=== PATIENT | female | born 1950 | race Caucasian/White ===

== ENCOUNTER 2016-11-01 16:11 | Inpatient (IN) | payer OTHER ==
[~2016-11-01] VITALS: Ht 162.6 cm; Wt 70.5 kg
--- NOTE | ~2016-11-01 | HC ---
[facility] [address] [place] [address] CONSULTATION Name: GILLIAN WILSON Room #: 205-P ADM IN M.R.#: [id number] Admission: 11/01/16 Attend Phys: Gen Jenkins DO Discharge: Date of : 52 Report #: [id number] THIS REPORT FOR: //name// CC: FAM unknown Gen Jenkins REASON FOR CONSULTATION: Hypertension. HISTORY OF PRESENT ILLNESS: The patient is a 66-year-old woman with advanced kidney disease and hypertension. She is followed by Dr. Roth, her production support engineer at [facility]. Apparently, she fell and ended up at [facility]. From there, she migrated to [facility]. Her baseline level of functioning is being wheelchair bound. She has had a prior below the knee amputation for severe peripheral disease. She is now admitted for 2-3-day history of high and difficult to control blood pressures. She denies chest pain, pressure or ischemic type symptoms. She denies orthopnea or paroxysmal nocturnal dyspnea. She has had recurrent diarrhea and has been previously and recently diagnosed with C. difficile colitis. LISTED ALLERGIES: Include AMLODIPINE, ASPIRIN, LISINOPRIL, MEPERIDINE, MORPHINE, NSAIDS, PENICILLIN, SULFA, and VANCOMYCIN. MEDICATIONS: She has multiple medicine lists that are not all the same. Her [facility] medicine list includes amiodarone 200 mg daily, atorvastatin 40 mg daily, citalopram 20 mg daily, Plavix 75 mg daily, Cardura 4 mg twice daily, metoprolol 100 mg twice daily, Epogen, minoxidil 2.5 mg twice daily, Lyrica 50 mg twice daily, furosemide 40 mg daily, spironolactone 25 mg daily, clonidine patch 0.1 patch weekly, Imdur 120 mg daily, hydralazine 100 mg q. 8 hours and hydrocodone. PAST MEDICAL HISTORY: Medical records have been reviewed and include a history of right BKA in 2013, left lower extremity stenting, right arm fistula, stage 4 chronic kidney disease, coronary stenting, bronchitis, hypertension, partial hysterectomy, tubal ligation. SOCIAL HISTORY: She has never been a smoker. FAMILY HISTORY: Father with hypertension. REVIEW OF SYSTEMS: All systems negative except as that noted above. PHYSICAL EXAMINATION: GENERAL: A pleasant woman in no distress. She is alert and oriented. VITAL SIGNS: Blood pressure is 120/59, heart rate of 82 and regular. She is afebrile. Temperature is 98.6 degrees, 5 feet 4 inches tall and 160 pounds. HEENT: There are neither xanthelasma, subcutaneous xanthomata, oral mucosal or digital cyanosis or kyphoscoliosis present. [address] [address] CONSULTATION Name: GILLIAN WILSON Room #: 205-P ADM IN M.R.#: [id number] Admission: 11/01/16 Attend Phys: Gen Jenkins DO Discharge: Date of : 52 Report #: [id number] CHEST: Clear to auscultation and percussion. CARDIAC: Regular rate and rhythm with normal S1, S2. Jugular venous pressure is elevated. ABDOMEN: Soft and nontender. EXTREMITIES: Remaining extremity reveals 2+ pedal edema. Radial pulses are 2+. NEUROLOGIC: She is alert with a nonfocal exam. Echocardiogram demonstrates hyperdynamic systolic function with LVH. EKG demonstrates sinus rhythm with LVH. Sodium 145, potassium 4.4, creatinine 2.3. Troponin negative. ProBNP of 1805. White count 8.5, hemoglobin 13, hematocrit 42, platelet count 301. Chest x-ray demonstrates venous congestion. IMPRESSION: 1. Hypertension, poor control. 2. Diastolic heart failure, acute on chronic. 3. Stage 4 chronic kidney disease. 4. Peripheral vascular disease with right below knee amputation, left lower extremity stenting. 5. History of coronary artery disease with prior stenting, no angina. 6. Clostridium difficile colitis. RECOMMENDATIONS: 1. I believe to a large degree her difficult to control hypertension is related to volume overload and advanced kidney disease. I would recommend intravenous diuretic therapy. Her ejection fraction is normal with moderate LVH. 2. I would defer optimal volume management to her production support engineer. It looks like in some point in the past, there has been a talk or concern about hemodialysis. At this point, no additional cardiovascular testing is needed. Thank you for asking me to participate in her care. By: 06 56 Dakota Lucas MD, FACC /nt
--- NOTE | ~2016-11-01 | EKG ---
[place] [address] [employer] [facility] [place] [address] ELECTROCARDIOGRAM REPORT Name: GILLIAN WILSON Room #: 205- ADM IN M.R.#: [id number] Admission: 11/01/16 Attend Phys: Gen Jenkins DO Discharge: Date of : 52 Report #: [id number] THIS REPORT FOR: //name// [facility] Test Date: 2016-11-02 Test Time: 06:04:53 Pat Name: GILLIAN GALDAMEZ Department: Room: 205 P Gender: F Weir Fisherman: PAYAL : 1950 Requested By: Gen Jenkins Order Number: [id number] MD: Dakota Lucas Measurements Intervals [place] Rate: 78 P: 44 [place]: 176 QRS: -7 QRSD: 107 T: QT: 395 QTc: 450 Interpretive Statements Sinus rhythm Atrial premature complex Probable left atrial enlargement LVH with secondary repolarization abnormality Anteroseptal infarct, age indeterminate No previous ECG available for comparison Electronically Signed On 11-03-2016 8:39:39 CDT by Dakota Lucas [email or web address] <ELECTRONICALLY SIGNED> By: Dakota Lucas MD, [facility] 11/03/16 0839 3 3 Dakota Lucas MD, [facility] /EPI
--- NOTE | ~2016-11-01 | 2DMMODE ---
[facility] [address] [email or web address] [address] 2 D/M-MODE ECHOCARDIOGRAM Name: GILLIAN WILSON Room #: 205-P [facility] IN ..#: [id number] Admission: 11/01/16 Attend Phys: Gen Jenkins, Discharge: Date of : 52 Date of Service: 11/02/16 [facility] Report #: [id number] THIS REPORT FOR: //name// APPROVED REPORT Study performed: 11/02/2016 09:02:59 EXAM: Comprehensive 2D, Doppler, and color-flow Echocardiogram Patient Location: Bedside Room #: 205 Status: routine Other Information Study Quality: Good Indications COPD Hypertension/HDD 2D Dimensions RVDd: 37.54 mm LVEF(%): 65.99 (>50%) IVSd: 16.38 (7-11mm) LVOT Diam: 19.23 (18-24mm) LVDd: 39.52 mm PWd: 15.95 (7-11mm) Ascending Ao: 30.50 (22-36mm) LVDs: 25.37 (25-40mm) Aortic Root: 27.83 mm IVC: 12.00 mm Gaviria's LVEF: 65.99 % Volumes Left Atrial Volume (Systole) Single Plane 4CH: 68.22 mL Single Plane 2CH: 64.18 mL LA ESV Index: 41.00 mL/m2 Aortic Valve AoV Peak Bernard.: 1.72 m/s AO Peak Gr.: 11.81 mmHg LVOT Max P.85 mmHg LVOT Max V: 1.40 m/s TWAN Vmax: 2.37 cm2 Mitral Valve E/A Ratio: 0.9 MV Decel. Time: 228.94 ms MV E Max Bernard.: 1.06 m/s MV A Bernard.: 1.20 m/s MV PHT: 66.39 ms [facility] [place] [address] 2 D/M-MODE ECHOCARDIOGRAM Name: GILLIAN WILSON Room #: 205-P [facility] IN ..#: [id number] Admission: 11/01/16 Attend Phys: Gen Jenkins, Discharge: Date of : 52 Date of Service: 11/02/16 [facility] Report #: [id number] IVRT: 147.64 ms Pulmonary Valve PV Peak Bernard.: 1.56 m/s PV Peak Gr.: 9.79 mmHg Pulmonary Vein P Vein S: 0.50 m/s P Vein A: 0.26 m/s P Vein D: 0.37 m/s P Vein A Dur.: 101.5 msec P Vein S/D Ratio: 1.35 Tricuspid Valve TR Peak Bernard.: 3.03 m/s RAP Estimate: 5.00 mmHg TR Peak Gr.: 36.62 mmHg PA Pressure: 42.00 mmHg Left Ventricle The left ventricle is normal size. There is normal LV segmental wall motion. Moderate concentric left ventricular hypertrophy. Left ventricular systolic function is hyperdynamic. LVEF is >70%. Grade I - abnormal relaxation pattern. Right Ventricle The right ventricle is normal size. The right ventricular systolic function is normal. Atria Left atrium is dilated. Right atrium is at the upper limits of normal. Aortic Valve The aortic valve is normal in structure. No aortic regurgitation is present. There is no aortic valvular stenosis. Mitral Valve The mitral valve is normal in structure. No mitral regurgitation. No evidence of mitral valve stenosis. Tricuspid Valve The tricuspid valve is normal in structure. There is trace tricuspid regurgitation. The right atrial pressure is estimated at 5 mmHg. There is mild-moderate pulmonary hypertension. Pulmonic Valve The pulmonary valve is normal in structure. There is [place]mon[place] [address] 2 D/M-MODE ECHOCARDIOGRAM Name: GILLIAN WILSON Room #: 205-P [facility] IN [facility]#: [id number] Admission: 11/01/16 Attend Phys: Gen Jenkins, Discharge: Date of : 52 Date of Service: 11/02/16 1024 Report #: [id number] Great Vessels The aortic root is normal in size. IVC is normal in size and collapses >50% with inspiration. Pericardium No pericardial effusion. <Conclusion> Left ventricular systolic function is hyperdynamic. Moderate concentric left ventricular hypertrophy. There is normal LV segmental wall motion. LVEF is >70%. Grade I - abnormal relaxation pattern. The aortic valve is normal in structure. No aortic regurgitation or stenosis The mitral valve is normal in structure. No mitral regurgitation. Pulmonary artery pressure of 40mmHg No pericardial effusion. <ELECTRONICALLY SIGNED> By: Dakota Lucas MD, FACC 11/02/16 1024 1024 1024 Dakota Lucas MD, FACC /INF
--- NOTE | ~2016-11-01 | EKG ---
[place] [address] [address] [place] [address] ELECTROCARDIOGRAM REPORT Name: GILLIAN WILSON Room #: 205- ADM IN M.R.#: [id number] Admission: 11/01/16 Attend Phys: Gen Jenkins DO Discharge: Date of : 51 Report #: [id number] THIS REPORT FOR: //name// [facility] ED Test Date: 2016-11-01 Test Time: 16:59:51 Pat Name: GILLIAN GALDAMEZ Department: Room: 205 Gender: F Tufter Hand: [email or web address] : 1950 Requested By: Mainor Ramirez Order Number: [id number] MD: Dakota Lucas Measurements Intervals [place] Rate: 69 P: 64 [place]: 177 QRS: -10 QRSD: 109 T: 172 QT: 405 QTc: 434 Interpretive Statements Sinus rhythm Probable left atrial enlargement LVH with secondary repolarization abnormality Anterior infarct, old No previous ECG available for comparison Electronically Signed On 11-03-2016 8:35:26 CDT by Dakota Lucas [email or web address] <ELECTRONICALLY SIGNED> By: Dakota Lucas MD, [facility] 11/03/16 0835 1659 1659 Dakota Lucas MD, [facility] /EPI
--- NOTE | ~2016-11-01 | EKG ---
[place] [address] [facility] [place] [address] ELECTROCARDIOGRAM REPORT Name: GILLIAN WILSON Room #: 205- ADM IN M.R.#: [id number] Admission: 11/01/16 Attend Phys: Gen Jenkins DO Discharge: Date of : 51 Report #: [id number] THIS REPORT FOR: //name// [facility] Test Date: 2016-11-01 Test Time: 22:31:19 Pat Name: GILLIAN GALDAMEZ Department: Room: 205 P Gender: F Roofing Contractor: osiel : 1950 Requested By: Yane Bautista Order Number: [id number] MD: Dakota Lucas Measurements Intervals [place] Rate: 72 P: 43 [place]: 173 QRS: -9 QRSD: 110 T: 188 QT: 397 QTc: 435 Interpretive Statements Sinus rhythm LVH with secondary repolarization abnormality Probable anterior infarct, age indeterminate No previous ECG available for comparison Electronically Signed On 11-03-2016 8:38:00 CDT by Dakota Lucas [email or web address] <ELECTRONICALLY SIGNED> By: Dakota Lucas MD, [facility] 11/03/16 0838 30 30 Dakota Lucas MD, [facility] /EPI
--- NOTE | ~2016-11-01 | EKG ---
[place] [address] [facility] [place] [address] ELECTROCARDIOGRAM REPORT Name: GILLIAN WISLON Room #: 205- ADM IN M.R.#: [id number] Admission: 11/01/16 Attend Phys: Gen Jenkins DO Discharge: Date of : 52 Report #: [id number] THIS REPORT FOR: //name// [facility] Test Date: 2016-11-02 Test Time: 01:45:29 Pat Name: GILLIAN GALDAMEZ Department: Room: 205 P Gender: F Ed Educational Aide: osiel : 1950 Requested By: Gen Jenkins Order Number: [id number] MD: Dakota Lucas Measurements Intervals [place] Rate: 72 P: 49 [place]: 172 QRS: -11 QRSD: 108 T: 155 QT: 411 QTc: 450 Interpretive Statements Sinus rhythm LVH with secondary repolarization abnormality Probable anterior infarct, age indeterminate Baseline wander in lead(s) V1 No previous ECG available for comparison Electronically Signed On 11-03-2016 8:38:54 CDT by Dakota Lucas [email or web address] <ELECTRONICALLY SIGNED> By: Dakota Lucas MD, [facility] 11/03/16 0838 0145 0145 Dakota Lucas MD, [facility] /EPI
[2016-11-01 16:12] VITALS: BP 205/85
[2016-11-01 18:08] LABS: BASOPHILS 0.7 % (0.0-2.0); EOSINOPHILS 2.7 % (0.0-3.0); HEMATOCRIT 42.2 % (37.0-47.0); HEMOGLOBIN 13.6 gm/dL (12.0-15.0); LYMPHOCYTES 18.8 % (24.0-44.0); MCH 27.7 pg (26.0-34.0); MCHC 32.1 g/dL (28.0-37.0); MCV 86.3 fL (80.0-100.0); MONOCYTES 7.9 % (1.0-8.0); PLATELET COUNT 301 thou/uL (150-400); POLYS 69.9 % (36.0-66.0); RBC 4.89 mil/uL (4.20-5.00); RDW 19.9 % (10.5-14.5); WBC 8.5 thou/uL (4.0-11.0)
[2016-11-01 18:19] LABS: ANION GAP 7 mmol/L (7-16); BUN 21 mg/dL (7-18); CALCIUM 7.7 mg/dL (8.5-10.1); CHLORIDE 110 mmol/L (98-107); CO2 28 mmol/L (21-32); CREATININE 2.3 mg/dL (0.6-1.0); GLUCOSE 96 mg/dL (74-106); POTASSIUM 4.4 mmol/L (3.5-5.1); SODIUM 145 mmol/L (136-145)
[2016-11-01 18:22] LABS: MANUAL DIFF NO
[2016-11-01 18:29] LABS: NT-PRO BRAIN NAT PEPTIDE 1805 pg/mL (<300); TROPONIN-I < 0.04 ng/mL (<0.04-0.07)
[2016-11-01 21:47] VITALS: BP 176/93
[2016-11-01 22:39] VITALS: BP 206/88
[2016-11-01] MEDS ORDERED: ACCUNEB SO1.25 MG/1 INH (23:40)
[2016-11-01] MEDS ORDERED: ATORVASTATIN CA40 MG PO (23:41)
[2016-11-01] MEDS ORDERED: PACERONE200 MG PO (23:41)
[2016-11-01] MEDS ORDERED: TUMS PO (23:41)
[2016-11-01] MEDS ORDERED: CELEXA20 MG PO (23:41)
[2016-11-01] MEDS ORDERED: PLAVIX 75 MG TA75 M1 PO (23:42)
[2016-11-01] MEDS ORDERED: CARDURA4 MG PO (23:42)
[2016-11-01] MEDS ORDERED: TOPROL XL100 MG PO (23:43)
[2016-11-01] MEDS ORDERED: PROCRIT 1010000 U/M1 IJ (23:44)
[2016-11-01] MEDS ORDERED: CLARITIN10 MG PO (23:45)
[2016-11-01] MEDS ORDERED: FOLIC ACID1 MG PO (23:45)
[2016-11-01] MEDS ORDERED: FLONASE 0.05%50 MCG NASAL (23:45)
[2016-11-01] MEDS ORDERED: LYRICA 50 MG50 MG PO (23:47)
[2016-11-01] MEDS ORDERED: MEGESTROL40 MG/1 M1 PO (23:47)
[2016-11-01] MEDS ORDERED: MINOXIDIL2.5 MG PO (23:47)
[2016-11-01] MEDS ORDERED: ANTACID650 MG PO (23:49)
[2016-11-01] MEDS ORDERED: PHENERGAN 25 MG25 M1 PO (23:49)
[2016-11-01] MEDS ORDERED: SPIRIVA INH (23:50)
[2016-11-01] MEDS ORDERED: ZOFRAN ODT4 MG DISSOLVE (23:50)
[2016-11-01] MEDS ORDERED: ALDACTONE25 MG PO (23:50)
[2016-11-01] MEDS ORDERED: LASIX 40 MG TAB40 M2 PO (23:50)
[2016-11-01] MEDS ORDERED: CATAPRES-TTS 10.1 MG TD (23:52)
[2016-11-01] MEDS ORDERED: IMDUR 60 MG TAB60 M1 PO (23:53)
[2016-11-01] MEDS ORDERED: CALCITRIOL0.5 MCG PO (23:53)
[2016-11-01] MEDS ORDERED: NORCO 5-325 TA1 EACH PO (23:55)
[2016-11-01] MEDS ORDERED: HYDRALAZINE HC100 MG PO (23:55)
[2016-11-02 05:26] VITALS: BP 150/69
[2016-11-02 07:20] VITALS: BP 143/72
[2016-11-02 11:30] VITALS: BP 155/71
[2016-11-02] MEDS ORDERED: SIMVASTATIN40 MG PO (13:58)
[2016-11-02] MEDS ORDERED: SPIRIVA INH (13:59)
[2016-11-02] MEDS ORDERED: BUMETANIDE PO (14:02)
[2016-11-02] MEDS ORDERED: NASONEX17 GM NASAL (14:03)
[2016-11-02] MEDS ORDERED: CLARITIN10 MG PO (14:03)
[2016-11-02] MEDS ORDERED: ALBUTEROL2.5 MG/31 INH (14:05)
[2016-11-02 15:34] VITALS: BP 120/59
[2016-11-02 20:30] VITALS: BP 139/61
[2016-11-03 03:57] VITALS: BP 148/62
[2016-11-03 05:46] LABS: ABSOLUTE NEUTROPHILS 4.4 thou/uL (1.4-8.2); BASOPHILS 0.3 % (0.0-2.0); EOSINOPHILS 2.8 % (0.0-3.0); HEMATOCRIT 37.6 % (37.0-47.0); HEMOGLOBIN 12.2 gm/dL (12.0-15.0); MCH 27.8 pg (26.0-34.0); MCHC 32.4 g/dL (28.0-37.0); MCV 85.9 fL (80.0-100.0); MONOCYTES 9.7 % (1.0-8.0); PLATELET COUNT 284 thou/uL (150-400); POLYS 59.2 % (36.0-66.0); RBC 4.38 mil/uL (4.20-5.00); RDW 19.6 % (10.5-14.5); WBC 7.5 thou/uL (4.0-11.0)
[2016-11-03 05:48] LABS: MANUAL DIFF NO
[2016-11-03 05:56] LABS: CALCIUM 7.6 mg/dL (8.5-10.1); CREATININE 2.7 mg/dL (0.6-1.0); POTASSIUM 4.6 mmol/L (3.5-5.1)
[2016-11-03 07:45] VITALS: BP 148/67
[2016-11-03 11:23] VITALS: BP 132/59
[2016-11-03 16:18] VITALS: BP 126/61
[2016-11-03 19:58] VITALS: BP 125/64
[2016-11-04 03:01] LABS: ABSOLUTE NEUTROPHILS 5.2 thou/uL (1.4-8.2); BASOPHILS 0.8 % (0.0-2.0); EOSINOPHILS 2.5 % (0.0-3.0); HEMATOCRIT 38.8 % (37.0-47.0); HEMOGLOBIN 12.3 gm/dL (12.0-15.0); LYMPHOCYTES 25.8 % (24.0-44.0); MCH 27.1 pg (26.0-34.0); MCHC 31.8 g/dL (28.0-37.0); MCV 85.4 fL (80.0-100.0); MONOCYTES 8.7 % (1.0-8.0); PLATELET COUNT 301 thou/uL (150-400); POLYS 62.2 % (36.0-66.0); RBC 4.54 mil/uL (4.20-5.00); RDW 19.1 % (10.5-14.5); WBC 8.3 thou/uL (4.0-11.0)
[2016-11-04 03:13] LABS: MANUAL DIFF NO
[2016-11-04 03:19] LABS: CALCIUM 7.7 mg/dL (8.5-10.1); POTASSIUM 4.2 mmol/L (3.5-5.1)
[2016-11-04 03:42] VITALS: BP 134/72
[2016-11-04 07:16] VITALS: BP 166/80
[2016-11-04 11:42] VITALS: BP 165/69
[2016-11-04 15:37] VITALS: BP 129/63
[2016-11-04 20:02] VITALS: BP 140/65
[2016-11-05 04:21] VITALS: BP 140/70
[2016-11-05 08:20] VITALS: BP 113/64
[2016-11-05] MEDS ORDERED: XIFAXAN550 MG PO (09:36)
[2016-11-05] MEDS ORDERED: NORCO 5-325 TA1 EACH PO (09:37)
[2016-11-05] MEDS ORDERED: LYRICA 50 MG50 MG PO (09:37)
== END 2016-11-05 12:20 | DRG 304 ==
LOC: ER 16:11 → 2N 21:20 → EROBS 21:20 → 2N 21:45
PROVIDERS: Family Medicine; Nurse Practitioner
DX: I16.0 Hypertensive urgency (principal); I50.33 Acute on chronic diastolic (congestive) heart failure; N18.4 Chronic kidney disease, stage 4 (severe); A04.7 Enterocolitis due to Clostridium difficile; I13.0 Hypertensive heart and chronic kidney disease with heart failure and stage 1 through stage 4 chronic kidney disease, or unspecified chronic kidney disease; I73.9 Peripheral vascular disease, unspecified; J44.9 Chronic obstructive pulmonary disease, unspecified; M62.81 Muscle weakness (generalized); I48.0 Paroxysmal atrial fibrillation; F41.9 Anxiety disorder, unspecified; I25.10 Atherosclerotic heart disease of native coronary artery without angina pectoris; Z95.5 Presence of coronary angioplasty implant and graft; I25.2 Old myocardial infarction; Z89.611 Acquired absence of right leg above knee; Z86.73 Personal history of transient ischemic attack (TIA), and cerebral infarction without residual deficits; Z90.710 Acquired absence of both cervix and uterus; Z79.02 Long term (current) use of antithrombotics/antiplatelets; Z79.51 Long term (current) use of inhaled steroids; Z79.899 Other long term (current) drug therapy; Z88.0 Allergy status to penicillin; Z88.4 Allergy status to anesthetic agent; Z88.1 Allergy status to other antibiotic agents; Z88.5 Allergy status to narcotic agent; Z88.2 Allergy status to sulfonamides; Z88.8 Allergy status to other drugs, medicaments and biological substances; Z82.49 Family history of ischemic heart disease and other diseases of the circulatory system
CPT/HCPCS: 10081

== ENCOUNTER 2016-11-30 14:05 | Inpatient (IN) | payer OTHER ==
[~2016-11-30] VITALS: Ht 160 cm; Wt 64.9 kg
--- NOTE | ~2016-11-30 | P ---
[facility] [place] [address] [address] [place] [address] PROCEDURE REPORT Name: GILLIAN WILSON Room #: 428-P ADM IN M.R.#: [id number] Admission: 12/02/16 Attend Phys: Jhon Lopez MD Discharge: Date of : 52 Report #: [id number] THIS REPORT FOR: //name// CC: [facility] physician/PCP Jhon Lopez MD DATE OF SERVICE: 12/02/2016 PROCEDURE: EGD with biopsies. PATIENT OF: Dr. Jhon Lopez. INDICATION FOR PROCEDURE: This patient has had dysphagia and odynophagia of undetermined etiology. She feels as the food is stuck in her esophagus today. She says this has been going on acutely for the past 2 weeks. She denies any gastroesophageal reflux. She has a history of a hiatal hernia, but no peptic ulcer disease. Her weight is stable. Her appetite has been good. She is having chest pain that radiates straight through to her back. Informed consent for this procedure was obtained prior to the administration of any medication. The risks of the procedure, which include bleeding, perforation, infection, complications of sedation and the possibility I could miss something have been explained to the patient and she has indicated her consent by signing. Propofol was slowly titrated before and during this procedure for patient comfort by the anesthesia service. The [employer] upper videoscope was introduced through the upper esophageal sphincter and advanced under direct visualization to the second portion of the duodenum. Findings are noted on withdrawal of the scope. The duodenal mucosa appears somewhat irregular and . Biopsies obtained times 1 from the second portion of the duodenum for histopathology to evaluate this histologically. Good hemostasis was noted after that biopsy, but the patient has been receiving heparin. The duodenal bulb appears normal. Pylorus, erythematous and edematous mucosa noted. The prepyloric area is also erythematous and edematous, but nonbleeding and no ulcers were seen here. Antrum, erythematous mucosa. Biopsies were obtained times 2 from the antrum for histopathology. Good hemostasis was noted after those biopsies. Body, erythematous mucosa. Cardia and fundus, erythematous mucosa. Retroflex view reveals presence of a small hiatal hernia. The scope was withdrawn to the esophagus. The Z-line is appropriately located at the top of the gastric folds and appears normal. The distal esophageal mucosa appears normal in the mid esophagus. There are several ulcerations that are noted. These have exudate on top that is removable with suction through the scope and there is a red ulceration under these white exudative lesions. The more proximal esophageal mucosa appears normal. The scope was withdrawn. The patient went to the [address] [address] PROCEDURE REPORT Name: GILLIAN WILSON Room #: 428-P ADM IN M.R.#: [id number] Admission: 12/02/16 Attend Phys: Jhon Lopez MD Discharge: Date of : 52 Report #: [id number] recovery area in stable condition. She tolerated the procedure well. IMPRESSION: 1. Ulcerated esophagus in the 30 cm area from the incisors. 2. Small hiatal hernia. 3. Diffuse gastric erythema and edema, worse distally. 4. Irregular mucosa of the duodenum. Biopsies pending. RECOMMENDATIONS: To await the biopsy results. She will need a repeat EGD in approximately 12 weeks to assure ulcer healing of these esophageal ulcers. Thank you very much once again for allowing me to participate in her care. <ELECTRONICALLY SIGNED> By: Ara Chowdhury DO 12/03/16 0541 1543 2246 Ara Chowdhury DO /nt
--- NOTE | ~2016-11-30 | S ---
[facility] [place] [address] [address] [place] [address] SURGICAL PATH RPT PROCEDURE Name: GILLIAN WILSON Room #: 428-P DIS IN M.R.#: [id number] Admission: 12/02/16 Date of : 52 Discharge: 12/03/16 Report #: [id number] Path Case #: [id number] PATHOLOGY REPORT COLLECTION DATE: 12/02/2016 RECEIVED DATE: 12/03/2016 SUBMITTING PHYS: Dr. Ara Chowdhury OTHER PHYS: Dr. Jhon Lopez SPECIMEN(S) RECEIVED: A.Bx at 2nd portion of duodenum B.Bx at gastric * * * * * * * * * * * * FINAL DIAGNOSIS: A. "BX second portion of duodenum", biopsy: - Small bowel mucosa with acute and chronic inflammation consistent with peptic duodenitis and increased intraepithelial lymphocytes with focal villous atrophy (see comment). B. "BX at gastric", biopsy: - Gastric mucosa with mild reactive changes and mild acute and chronic inflammation consistent with mild diffuse active gastritis. - Negative H. pylori immunohistochemical stain (block B1); control reacted appropriately. COMMENT: Deeper sections are performed on specimen A. The findings are consistent with peptic duodenitis. The increased intraepithelial lymphocytes and focal villous atrophy are worrisome for concomitant and/or evolving celiac sprue. No dysplasia is seen. Clinical and endoscopic correlation is required. Part B is co-reviewed with Dr. Zuleyma Butts. (CLW:herminia; 12/04/2016) PATHOLOGIST: Princess Linder M.D. REPORT ELECTRONICALLY SIGNED BY: Princess Linder M.D. DATE/TIME: 12/04/2016 15:21 * * * * * * * * * * * * GROSS PATHOLOGY: A. Received in formalin labeled "ANDREA Shell 2nd portion of duodenum," is a segment of almanzar soft tissue measuring 0.4 cm in maximum dimension. The specimen is submitted entirely in cassette A1. B. Received in formalin labeled "ANDREA Shell of gastric," are two segments of almanzar soft tissue measuring 0.6 x 0.3 x 0.2 cm in aggregate dimensions and ranging from 0.1 to 0.5 cm in maximum [address] [place] [address] SURGICAL PATH RPT PROCEDURE Name: GILLIAN WILSON Room #: 428-P [facility] IN M.R.#: [id number] Admission: 12/02/16 Date of : 52 Discharge: 12/03/16 Report #: [id number] Path Case #: [id number] dimension. The specimen is submitted entirely in cassette B1. (TSD; 12/03/2016) CLINICAL HISTORY: Hiatal hernia, esophageal ulcers, diffuse gastroduodenitis INITIAL CPT CODE(S): A; 19845 B; 73959, 47970 Professional services performed by [facility] at [facility] [address] [place] [address] Technical services performed by [facility] at [address] [place] [address], [address], [place] [address]. [facility] [address] [place] [address] PHONE: [phone] DIRECTOR: Christo Burrell M.D. * * * END OF REPORT * * *
--- NOTE | ~2016-11-30 | EKG ---
[address] [place] [address] ELECTROCARDIOGRAM REPORT Name: GILLIAN WILSON Room #: 428-P [facility] M.R.#: [id number] Admission: 11/30/16 Attend Phys: Jhon Lopez MD Discharge: Date of : 52 Report #: [id number] THIS REPORT FOR: //name// [facility] ED Test Date: 2016-11-30 Test Time: 14:08:54 Pat Name: GILLIAN GALDAMEZ Department: Room: [facility] Gender: F Goodyear Welter: [email or web address] : 1950 Requested By: Charbel Rivera Order Number: [id number] MD: Dakota Lucas Measurements Intervals [place] Rate: 85 P: 47 [place]: 171 QRS: -24 QRSD: 100 T: 80 QT: 373 QTc: 444 Interpretive Statements Sinus rhythm Probable left atrial enlargement LVH with secondary repolarization abnormality Anterior infarct, old Compared to ECG 11/02/2016 06:04:53 Atrial premature complex(es) no longer present Electronically Signed On 12-01-2016 13:07:50 CDT by Dakota Lucas [email or web address] <ELECTRONICALLY SIGNED> By: Dakota Lucas MD, [facility] 12/01/16 1307 1408 1408 Dakota Lucas MD, [facility] /EPI
[~2016-11-30 14:05] MED LIST: ACCUNEB SO1.25 MG/1 INH; ALBUTEROL2.5 MG/31 INH; ALDACTONE25 MG PO; ANTACID650 MG PO; ATORVASTATIN CA40 MG PO; BUMETANIDE PO; CALCITRIOL0.5 MCG PO; CARDURA4 MG PO; CATAPRES-TTS 10.1 MG TD; CELEXA20 MG PO; CLARITIN10 MG PO; FLONASE 0.05%50 MCG NASAL; FOLIC ACID1 MG PO; HYDRALAZINE HC100 MG PO; IMDUR 60 MG TAB60 M1 PO; LASIX 40 MG TAB40 M2 PO; LYRICA 50 MG50 MG PO; MEGESTROL40 MG/1 M1 PO; MINOXIDIL2.5 MG PO; NASONEX17 GM NASAL; NORCO 5-325 TA1 EACH PO; PACERONE200 MG PO; PHENERGAN 25 MG25 M1 PO; PLAVIX 75 MG TA75 M1 PO; PROCRIT 1010000 U/M1 IJ; SIMVASTATIN40 MG PO; SPIRIVA INH; TOPROL XL100 MG PO; TUMS PO; XIFAXAN550 MG PO; ZOFRAN ODT4 MG DISSOLVE
[2016-11-30 14:06] VITALS: BP 104/47
[2016-11-30 14:39] LABS: ABSOLUTE NEUTROPHILS 5.7 thou/uL (1.4-8.2); HEMOGLOBIN 11.7 gm/dL (12.0-15.0); LYMPHOCYTES 20.4 % (24.0-44.0); MCH 27.3 pg (26.0-34.0); MCHC 32.4 g/dL (28.0-37.0); MCV 84.1 fL (80.0-100.0); PLATELET COUNT 272 thou/uL (150-400); POLYS 66.6 % (36.0-66.0); RBC 4.28 mil/uL (4.20-5.00); RDW 17.4 % (10.5-14.5); WBC 8.5 thou/uL (4.0-11.0)
[2016-11-30 14:43] LABS: MANUAL DIFF NO
[2016-11-30 14:47] LABS: ANION GAP 11 mmol/L (7-16); BUN 40 mg/dL (7-18); CALCIUM 8.6 mg/dL (8.5-10.1); CHLORIDE 107 mmol/L (98-107); CO2 24 mmol/L (21-32); CREATININE 2.7 mg/dL (0.6-1.0); GLUCOSE 108 mg/dL (74-106); POTASSIUM 4.3 mmol/L (3.5-5.1); SODIUM 142 mmol/L (136-145)
[2016-11-30 14:55] LABS: TROPONIN-I < 0.04 ng/mL (<0.04-0.07)
[2016-11-30] MEDS ORDERED: ONDANSETRON ODT4 MG PO (15:16)
[2016-11-30] MEDS ORDERED: CHOLESTYRAMINE P4 GM PO (15:18)
[2016-11-30] MEDS ORDERED: COLACE100 MG PO (15:19)
[2016-11-30] MEDS ORDERED: BISACODYL SUPP10 MG RECTAL (15:19)
[2016-11-30] MEDS ORDERED: FLOMAX0.4 MG PO (15:20)
[2016-11-30] MEDS ORDERED: OMEPRAZOLE20 M1 PO (15:20)
[2016-11-30] MEDS ORDERED: NEPRO CARB STE237 ML PO (15:22)
[2016-11-30 17:36] VITALS: BP 115/51
[2016-11-30 18:08] VITALS: BP 113/56
[2016-11-30 20:22] VITALS: BP 131/61
[2016-12-01 04:13] VITALS: BP 121/59
[2016-12-01 04:47] LABS: HEMATOCRIT 35.7 % (37.0-47.0); HEMOGLOBIN 11.4 gm/dL (12.0-15.0); MCHC 32.1 g/dL (28.0-37.0); MCV 84.2 fL (80.0-100.0); RBC 4.24 mil/uL (4.20-5.00); RDW 17.7 % (10.5-14.5); WBC 7.8 thou/uL (4.0-11.0)
[2016-12-01 05:10] LABS: CALCIUM 8.4 mg/dL (8.5-10.1); CREATININE 2.7 mg/dL (0.6-1.0); POTASSIUM 4.2 mmol/L (3.5-5.1)
[2016-12-01 16:00] VITALS: BP 109/62
[2016-12-01 20:30] VITALS: BP 133/66
[2016-12-02 04:30] VITALS: BP 128/64
[2016-12-02 07:34] VITALS: BP 143/66
[2016-12-02 16:28] VITALS: BP 147/71
[2016-12-02 17:59] VITALS: BP 176/84
[2016-12-02 20:10] VITALS: BP 149/67
[2016-12-03 01:40] VITALS: BP 149/67
[2016-12-03 04:37] VITALS: BP 149/63
[2016-12-03 07:47] VITALS: BP 164/64
[2016-12-03] MEDS ORDERED: PROTONIX40 M1 PO (10:30)
[2016-12-03] MEDS ORDERED: CARAFATE 11 GM/10 M1 PO (10:30)
[2016-12-03] MEDS ORDERED: MAG-AL PLUS SUS30 ML PO (10:31)
[2016-12-03 11:28] VITALS: BP 164/64
[2016-12-03 12:31] VITALS: BP 164/64
[2016-12-03 14:30] VITALS: BP 164/64
== END 2016-12-03 16:48 | disposition home health service (06) | DRG 380 ==
LOC: ER 14:05 → EROBS 16:06 → 4E 16:06
PROVIDERS: Emergency Medicine; Internal Medicine
PROC: 0DB68ZX Excision of Stomach, Via Natural or Artificial Opening Endoscopic, Diagnostic (ICD-10-PCS; principal; 2016-12-02)
PROC: 0DB98ZX Excision of Duodenum, Via Natural or Artificial Opening Endoscopic, Diagnostic (ICD-10-PCS; principal; 2016-12-02)
DX: K22.10 Ulcer of esophagus without bleeding (principal); N18.6 End stage renal disease; I12.0 Hypertensive chronic kidney disease with stage 5 chronic kidney disease or end stage renal disease; I25.10 Atherosclerotic heart disease of native coronary artery without angina pectoris; I48.0 Paroxysmal atrial fibrillation; E78.5 Hyperlipidemia, unspecified; J44.9 Chronic obstructive pulmonary disease, unspecified; F41.9 Anxiety disorder, unspecified; R13.10 Dysphagia, unspecified; K44.9 Diaphragmatic hernia without obstruction or gangrene; I73.9 Peripheral vascular disease, unspecified; G62.9 Polyneuropathy, unspecified; Z98.61 Coronary angioplasty status; Z90.710 Acquired absence of both cervix and uterus; Z89.611 Acquired absence of right leg above knee; Z88.2 Allergy status to sulfonamides; Z88.0 Allergy status to penicillin; Z88.1 Allergy status to other antibiotic agents; Z88.6 Allergy status to analgesic agent; Z88.8 Allergy status to other drugs, medicaments and biological substances; Z82.49 Family history of ischemic heart disease and other diseases of the circulatory system; I25.2 Old myocardial infarction; Z86.73 Personal history of transient ischemic attack (TIA), and cerebral infarction without residual deficits

== ENCOUNTER 2016-12-14 13:27 | Emergency (ER) | payer OTHER ==
[~2016-12-14] VITALS: Ht 160 cm; Wt 64.9 kg
--- NOTE | ~2016-12-14 | EKG ---
[place] [address] [facility] [place] [address] ELECTROCARDIOGRAM REPORT Name: GILLIAN WILSON Room #: [facility]#: [id number] Admission: 12/14/16 Attend Phys: Discharge: 12/14/16 Date of : 52 Report #: [id number] THIS REPORT FOR: //name// [facility] ED Test Date: 2016-12-14 Test Time: 13:58:18 Pat Name: GILLIAN GALDAMEZ Department: Room: Gender: F Film Examiner: Breezy VALADEZ : 1950 Requested By: Deepa Bernal Order Number: [id number] MD: Dakota Lucas Measurements Intervals [place] Rate: 71 P: 35 [place]: 175 QRS: -26 QRSD: 112 T: 95 QT: 422 QTc: 459 Interpretive Statements Sinus rhythm Probable left atrial enlargement LVH with secondary repolarization abnormality Anterior infarct, old Compared to ECG 11/30/2016 14:08:54 No significant changes Electronically Signed On 12-14-2016 16:45:02 CDT by Dakota Lucas [email or web address] <ELECTRONICALLY SIGNED> By: Dakota Lucas MD, [facility] 12/14/16 1645 1358 1358 Dakota Lucas MD, [facility] /EPI
[~2016-12-14 13:27] MED LIST changes: +BISACODYL SUPP10 MG RECTAL; +CARAFATE 11 GM/10 M1 PO; +CHOLESTYRAMINE P4 GM PO; +COLACE100 MG PO; +FLOMAX0.4 MG PO; +MAG-AL PLUS SUS30 ML PO; +NEPRO CARB STE237 ML PO; +OMEPRAZOLE20 M1 PO; +ONDANSETRON ODT4 MG PO; +PROTONIX40 M1 PO
[2016-12-14] MEDS ORDERED: PROTONIX40 MG PO (14:05)
[2016-12-14 14:20] LABS: HEMATOCRIT 38.6 % (37.0-47.0); HEMOGLOBIN 12.2 gm/dL (12.0-15.0); MANUAL DIFF YES; MCH 26.3 pg (26.0-34.0); MCHC 31.6 g/dL (28.0-37.0); MCV 83.3 fL (80.0-100.0); PLATELET COUNT 285 thou/uL (150-400); RBC 4.63 mil/uL (4.20-5.00); RDW 17.4 % (10.5-14.5)
[2016-12-14 14:33] LABS: ANION GAP 10 mmol/L (7-16); BUN 28 mg/dL (7-18); CALCIUM 9.1 mg/dL (8.5-10.1); CHLORIDE 105 mmol/L (98-107); CO2 25 mmol/L (21-32); CREATININE 2.5 mg/dL (0.6-1.0); GLUCOSE 111 mg/dL (74-106); SODIUM 140 mmol/L (136-145)
[2016-12-14 14:36] LABS: POTASSIUM 4.5 mmol/L (3.5-5.1)
[2016-12-14 14:42] LABS: TROPONIN-I < 0.04 ng/mL (<0.04-0.07)
[2016-12-14 14:57] LABS: ABSOLUTE NEUTROPHILS 5.1 thou/uL (1.4-8.2); ANISOCYTOSIS 1+; TOTAL CELL COUNT 100
== END 2016-12-14 15:34 | disposition home or self-care (01) ==
LOC: ER 13:27
PROVIDERS: Emergency Medicine
DX: K21.9 Gastro-esophageal reflux disease without esophagitis (principal); J45.909 Unspecified asthma, uncomplicated; I25.2 Old myocardial infarction; I48.91 Unspecified atrial fibrillation; F41.9 Anxiety disorder, unspecified; I12.9 Hypertensive chronic kidney disease with stage 1 through stage 4 chronic kidney disease, or unspecified chronic kidney disease; N18.4 Chronic kidney disease, stage 4 (severe); Z88.8 Allergy status to other drugs, medicaments and biological substances; Z90.711 Acquired absence of uterus with remaining cervical stump; Z86.73 Personal history of transient ischemic attack (TIA), and cerebral infarction without residual deficits; Z88.6 Allergy status to analgesic agent; Z88.5 Allergy status to narcotic agent; Z88.2 Allergy status to sulfonamides; Z88.1 Allergy status to other antibiotic agents

== ENCOUNTER → 2017-02-23 | Outpatient (CLI) | payer OTHER ==
[~2017-02-23] VITALS: Ht 160 cm; Wt 64.9 kg
[~2017-02-23] MED LIST changes: +PROTONIX40 M4 PO; +PROTONIX40 MG PO
--- NOTE | ~2017-02-23 | S ---
[facility] [place] [address] SURGICAL PATH RPT PROCEDURE Name: GILLIAN ECKERT Room #: REG MADY IvyYeceniaAbril.#: [id number] Admission: 02/23/17 Date of : 52 Discharge: Report #: [id number] Path Case #: [id number] PATHOLOGY REPORT COLLECTION DATE: 02/23/2017 RECEIVED DATE: 02/23/2017 SUBMITTING PHYS: Dr. Nabil Panda OTHER PHYS: Dr. Jhon Lopez SPECIMEN(S) RECEIVED: A.Bx small bowel B.Bx distal esophagus * * * * * * * * * * * * FINAL DIAGNOSIS: A. Small bowel mucosa, small bowel, endoscopic biopsy: - Superficial biopsy fragments with focal fundic-type metaplasia and mild acute inflammation, compatible with mild peptic duodenitis. - No definite villous blunting, or increase in intraepithelial lymphocytes identified. B. Gastroesophageal mucosa, distal esophagus r/I Cali's, endoscopic biopsy: - Gastric fundic-type mucosa with moderate acute esophagitis. - Squamous mucosa with mild active esophagitis. - Negative for intestinal metaplasia or dysplasia. (IUV:pit; 02/24/2017) PATHOLOGIST: Zuleyma Butts M.D. REPORT ELECTRONICALLY SIGNED BY: Zuleyma Butts M.D. DATE/TIME: 02/24/2017 13:01 * * * * * * * * * * * * GROSS PATHOLOGY: A. Received in formalin labeled "Gillian Eckert, BX small bowel r/o celiac," are 2 segments of almanzar soft tissue measuring 0.6 x 0.2 x 0.3 cm in aggregate dimensions and measuring 0.3 cm each in maximum dimension. The specimen is submitted entirely in cassette A1. B. Received in formalin labeled "Gillian Eckert, BX distal esophagus r/o Cali's," is a segment of almanzar soft tissue measuring 0.4 cm in maximum dimension. The specimen is submitted entirely in cassette B1. (TSD; 02/23/2017) CLINICAL HISTORY: Pre-OP DX: Follow-up Esophageal ulcer Hx Post-OP DX: Hiatal hernia, GERD [address] [address] SURGICAL PATH RPT PROCEDURE Name: GILLIAN ECKERT Room #: REG MADY Bond#: [id number] Admission: 02/23/17 Date of : 52 Discharge: Report #: [id number] Path Case #: [id number] INITIAL CPT CODE(S): A; 21269 B; 45653 Professional services performed by [facility] at [address] , [place] [address] Technical services performed by [facility] at [address] [place] [address], [facility] [address] [address]. [facility] [address] [place] [address] PHONE: [phone] DIRECTOR: Chrisot Burrell M.D. * * * END OF REPORT * * *
== END | disposition home or self-care (01) ==
LOC: GI 07:35
DX: K29.80 Duodenitis without bleeding (principal); K20.9 Esophagitis, unspecified; K44.9 Diaphragmatic hernia without obstruction or gangrene; I12.9 Hypertensive chronic kidney disease with stage 1 through stage 4 chronic kidney disease, or unspecified chronic kidney disease; N18.9 Chronic kidney disease, unspecified; J44.9 Chronic obstructive pulmonary disease, unspecified; I25.2 Old myocardial infarction; F32.89 Other specified depressive episodes; F41.8 Other specified anxiety disorders; Z95.5 Presence of coronary angioplasty implant and graft; Z98.890 Other specified postprocedural states; Z79.899 Other long term (current) drug therapy; Z88.0 Allergy status to penicillin; Z88.2 Allergy status to sulfonamides; Z86.73 Personal history of transient ischemic attack (TIA), and cerebral infarction without residual deficits; Z88.8 Allergy status to other drugs, medicaments and biological substances; Z90.49 Acquired absence of other specified parts of digestive tract; Z90.711 Acquired absence of uterus with remaining cervical stump
CPT/HCPCS: 62110; 62900